=== PATIENT | female | born 1965 | race American Indian/Alaskan Native ===

== ENCOUNTER 2017-12-25 16:23 | Emergency (ER) | payer MEDICAID, OTHER ==
[2017-12-25 16:24] VITALS: BMI 25.8
[2017-12-25 16:29] VITALS: TEMP 97.6
--- NOTE | 2017-12-25 17:21 | RAD ---
PROCEDURE: Cervical Spine Radiographs. HISTORY: Pain. COMPARISON: None. FINDINGS: BONES: Straightening of the normal cervical lordosis. . No fracture. Dens Intact. Anterior cervical spondylosis -C5-6 a disc space narrowing here. C7 transitional ribs - developmental variant noted Bilateral C4-5 and C5-6 uncovertebral hypertrophy DISC SPACES: Normal. SOFT TISSUES: Normal. No prevertebral soft tissue swelling. OTHER FINDINGS: None. IMPRESSION: No fracture or subluxation. Senescent changes and developmental variants as above
--- NOTE | 2017-12-25 17:58 | C.PDOC ---
History Of Present Illness 52 y/o female presents to the ER complaining of neck pain. Patient states that she was babysitting and sleeping on a cot when she woke up and felt a "shooting " pain in her neck. Patient reports that the pain radiates to her left arm. Patient notes that she only has pain with certain movements. Patient denies any chest pain and SOB. Time Seen by Provider: 12/25/17 16:52 Chief Complaint (Nursing): Upper Extremity Problem/Injury History Per: Patient History/Exam Limitations: no limitations Onset/Duration Of Symptoms: Days Current Symptoms Are (Timing): Still Present Severity: Moderate Past Medical History Reviewed: Historical Data, Nursing Documentation, Vital Signs Vital Signs: Last Vital Signs Temp 97.6 F 12/25/17 16:26 Pulse 70 12/25/17 18:15 Resp 16 12/25/17 18:15 BP 136/78 12/25/17 18:15 Pulse Ox 100 12/25/17 20:12 - Medical History PMH: No Chronic Diseases Other Surgeries: Hx of surgeries Family History: States: No Known Family Hx - Social History Hx Tobacco Use: Yes Hx Alcohol Use: Yes Hx Substance Use: No - Immunization History Hx Tetanus Toxoid Vaccination: No Hx Influenza Vaccination: No Hx Pneumococcal Vaccination: No Review Of Systems Except As Marked, All Systems Reviewed And Found Negative. Cardiovascular: Negative for: Chest Pain Respiratory: Negative for: Shortness of Breath Musculoskeletal: Positive for: Neck Pain Physical Exam - Physical Exam Appears: Non-toxic, No Acute Distress Skin: Normal Color, Warm Head: Atraumatic, Normacephalic Eye(s): bilateral: Normal Inspection Nose: Normal Oral Mucosa: Moist Neck: Normal ROM, Paracervical Tenderness (paraspinal tenderness to left side of neck), Supple Chest: Symmetrical Cardiovascular: Rhythm Regular Respiratory: Normal Breath Sounds, No Accessory Muscle Use, No Rales, No Rhonchi , No Wheezing Extremity: Normal ROM Neurological/Psych: Other (no focal deficits) ED Course And Treatment O2 Sat by Pulse Oximetry: 100 (RA) Pulse Ox Interpretation: Normal - Other Rad No standard instances X-Ray: Viewed By Me, Read By Radiologist Interpretation: PROCEDURE: Cervical Spine Radiographs. HISTORY: Pain. COMPARISON: None. FINDINGS: BONES: Straightening of the normal cervical lordosis. . No fracture. Dens Intact. Anterior cervical spondylosis -C5-6 a disc space narrowing here. C7 transitional ribs - developmental variant noted. Bilateral C4-5 and C5-6 uncovertebral hypertrophy. DISC SPACES: Normal. SOFT TISSUES: Normal. No prevertebral soft tissue swelling. OTHER FINDINGS: None. IMPRESSION: No fracture or subluxation. Senescent changes and developmental variants as above Progress Note: X-Ray- negative for fracture. Patient discharged and told to follow up with PMD in 1-2 days. Disposition - Disposition Disposition: HOME/ ROUTINE Disposition Time: 17:56 Condition: STABLE Additional Instructions: Follow up with your PMD within 1-2 days. Return to ED if feel worse. Prescriptions: Ibuprofen [Motrin Tab] 600 mg PO Q8 #30 tab Gabapentin [Neurontin] 100 mg PO TID #30 capsule diaZEpam [Valium] 2 mg PO TID #15 tab Instructions: Cervical Radiculopathy (ED) Forms: [facility] ([place]is[place]) - Clinical Impression Clinical Impression: Cervical radiculopathy - PA / MASTER CARPENTER / Resident Statement MD/DO has reviewed & agrees with the documentation as recorded. - Scribe Statement The provider has reviewed the documentation as recorded by the [facility] Provider Attestation All medical record entries made by the Luisibe were at my direction and personally dictated by me. I have reviewed the chart and agree that the record accurately reflects my personal performance of the history, physical exam, medical decision making, and the department course for this patient. I have also personally directed, reviewed, and agree with the discharge instructions and disposition.
[2017-12-25 18:16] VITALS: BP 136/78; PULSE 70; RESP 16
[2017-12-25 20:07] VITALS: O2SAT 100
== END 2017-12-25 18:15 | disposition home or self-care (01) ==
LOC: C.ER 16:23
DX: M54.12 Radiculopathy, cervical region (principal); Z87.891 Personal history of nicotine dependence